=== PATIENT | male | born 1970 | race Caucasian/White ===

== ENCOUNTER → 2019-06-17 14:10 | Outpatient (CLI) | payer OTHER, SELFPAY | PROVIDERS: PCP Nurse Practitioner Family; Visit Provider Nurse Practitioner Family | DX: R07.89 Other chest pain (principal) | CPT/HCPCS: 93005 ==

== ENCOUNTER → 2019-07-28 07:47 | Outpatient (CLI) | payer OTHER, SELFPAY ==
--- NOTE | 2019-07-28 08:48 | PM.TREADMILL ---
Cardiac Stress Test Report Referral & Results Date Patient Seen: 07/28/19 Time Patient Seen: 08:30 Requesting provider: Rosanne Vazquez Indication: Chest discomfort Rest ECG: Normal sinus rhythm Procedure Note: Today following both written and verbal informed consent the patient was exercised according to a standard Nicolás protocol patient went for a total of 10 minutes achieving a maximum heart rate of 179 maximum systolic blood pressure of 244. This is approximately 12.8 METs. Exercise was terminated at this point because of fatigue. Patient was also given Cardiolite through a previously started Hep-Lock IV by the remanufacturing technician approximately 1 minute prior to the cessation of exercise. No signs or symptoms of angina. No change in rhythm. Marginal ST deviations in multiple leads that resolved rapidly with rest. Exaggerated blood pressure response to exercise. LAUREN 0% on sedentary scale. Impression: Low probability for ischemia. Will await perfusion imaging. Consider workup for labile hypertension. Please note: Actual ECG tracings can be found in the PACS system.
--- NOTE | 2019-07-29 13:28 | DI.NM.S_ITS ---
DATE OF SERVICE: 07/28/2019 PROCEDURE PERFORMED: Exercise treadmill stress and rest myocardial perfusion imaging study with gating to assess ejection fraction and regional wall motion. ORDERING PROVIDER: NIKOLAS Schwab. INDICATIONS: The patient is a 49-year-old obese male with exertional chest discomfort and dyspnea. EXERCISE TREADMILL TESTING: The patient was able to exercise for a total of 10 minutes 13 seconds on a standard Nicolás protocol suggesting fair exercise capacity with an LAUREN of +5%. He had a normal heart rate response to exercise, achieving a maximum heart rate of 179 bpm (104% of his predicted maximum). He had a hypertensive blood pressure response to exercise with a resting blood pressure of 160/98 increasing to a maximum of 244/90. He had no chest discomfort. His resting ECG is normal and there are no ischemic changes with stress. There were no obvious arrhythmias. At 8 minutes 59 seconds of exercise, at heart rate of 152 bpm, 26.2 mCi of technetium-99 Myoview was injected and the patient was imaged 15 minutes later using a gated SPECT acquisition protocol. He returned the following day and was reinjected with an additional 25.2 mCi of technetium-99 Myoview and was imaged 30 minutes later, again using a gated SPECT acquisition protocol. FINDINGS: 1. Raw Data: There is fair myocardial tracer uptake. The lung/heart ratio is normal at 0.34 with a normal TID ratio of 0.73. 2. Quantitative Gated SPECT: Post stress ejection fraction is estimated at 88% without any focal wall motion abnormality. Resting ejection fraction is estimated at 78% with a resting end-diastolic volume of 99 mL. 3. Myocardial Perfusion Imaging: Post stress supine images show a fairly normal myocardial perfusion pattern with a very subtle defect in the proximal inferior wall that resolves on prone imaging, consistent with diaphragmatic attenuation. The resting images show an identical perfusion pattern without any areas of improvement. CONCLUSIONS: 1. Normal myocardial perfusion study. 2. Mild fixed inferior defect that resolves on prone imaging consistent with diaphragmatic attenuation artifact. There is no evidence for significant myocardial ischemia or previous myocardial infarction. 3. Normal left ventricular systolic function without any focal wall motion abnormality. 4. Fair exercise capacity without angina or ECG evidence of ischemia but with a significant hypertensive blood pressure response to exercise. Ino Reinoso - KELLY/gayle/ doc#: [id number]/job#: [id number] dd: 07/29/2019 12:35:00 dt: 07/29/2019 13:18:00 DICTATING MD/COPIES TO: Aurelio France MD; Rosanne Vazquez NP COPIES MNE: REYES LAM
== END ==
PROVIDERS: PCP Nurse Practitioner Family; Visit Provider Nurse Practitioner Family
DX: R07.89 Other chest pain (principal); R06.00 Dyspnea, unspecified; E66.9 Obesity, unspecified; R03.0 Elevated blood-pressure reading, without diagnosis of hypertension
CPT/HCPCS: 78452; 93016; 93017; 93018; A9502

== ENCOUNTER → 2020-08-20 09:16 | Outpatient (CLI) | payer OTHER, SELFPAY ==
[2020-08-20 10:14] LABS: Add Manual Diff / Slide Review NO; Basophils Absolute Auto 0 /uL (0-100); Basophils Percent Auto 0.5 % (0-2); Eosinophils Absolute Auto 100 /uL (0-450); Eosinophils Percent Auto 2.3 % (2-4); Hematocrit 48.3 % (41-53); Hemoglobin 16.6 g/dL (13.5-17.5); Lymphocytes Absolute Auto 1800 /uL (1100-4500); Lymphocytes Percent Auto 27.8 % (25-40); Mean Corpuscular HGB Conc 34.3 % (30-36); Mean Corpuscular Hemoglobin 28.9 PG (26-34); Mean Corpuscular Volume 84.3 fL (80-100); Monocytes Absolute Auto 600 /uL (0-900); Monocytes Percent Auto 8.5 % (3-14); Neutrophils Absolute Auto 4000 /uL (1500-7000); Neutrophils Percent Auto 60.9 % (50-75); Platelet Count 229 X10^3/uL (150-400); Red Blood Cell Count 5.73 X10^6/uL (4.5-5.9); Red Cell Distribution Width 13.5 % (11.6-14.8); White Blood Cell Count 6.5 X10^3/uL (4.5-11.0)
[2020-08-20 10:40] LABS: Alanine Aminotransferase 36 IU/L (<50); Albumin 4.1 g/dL (3.5-5.0); Albumin Globulin Ratio 1.3 (1.0-2.8); Alkaline Phosphatase 95 U/L (38-126); Aspartate Aminotransferase 29 IU/L (17-59); BUN Creatinine Ratio 14.6 (6-22); Bilirubin Total 0.6 mg/dL (0.2-1.3); Blood Urea Nitrogen 14 mg/dL (9-20); Calcium 9.3 mg/dL (8.4-10.2); Carbon Dioxide 31 mmol/L (22-32); Chloride 105 mmol/L (98-107); Cholesterol 200 mg/dL (140-199); Estimated Glomerular Filt Rate > 60.0 mL/min (>60); Globulin 3.2 g/dL (1.7-4.1); Glucose 114 mg/dL (70-100); HDL Cholesterol 32 mg/dL (40-60); HEMOLYSIS 23 (0-50); LDL Cholesterol Calculated 149 mg/dL (<100); Potassium 4.1 mmol/L (3.4-5.1); Sodium 139 mmol/L (137-145); Total Protein 7.3 g/dL (6.3-8.2); Triglycerides 97 mg/dL (35-150)
[2020-08-20 11:08] LABS: Prostate Specific Antigen Scrn 1.13 ng/mL (0.1-4.0)
[2020-08-20 11:16] LABS: TSH w/ Reflex to FT4 1.97 uIU/mL (0.47-4.68)
== END ==
PROVIDERS: PCP Nurse Practitioner Family; Referring Provider Family Medicine; Visit Provider Family Medicine
DX: Z76.89 Persons encountering health services in other specified circumstances (principal); Z12.5 Encounter for screening for malignant neoplasm of prostate; Z13.220 Encounter for screening for lipoid disorders; Z13.29 Encounter for screening for other suspected endocrine disorder; Z13.228 Encounter for screening for other metabolic disorders
CPT/HCPCS: 36415; 80053; 80061; 84443; 85025; G0103

== ENCOUNTER → 2022-09-28 10:58 | Outpatient (CLI) | payer OTHER, SELFPAY ==
[2022-09-28 12:46] LABS: Add Manual Diff / Slide Review NO; Basophils Absolute Auto 0 /uL (0-100); Basophils Percent Auto 0.6 % (0-2); Eosinophils Absolute Auto 100 /uL (0-450); Eosinophils Percent Auto 1.5 % (2-4); Hematocrit 48.4 % (41-53); Hemoglobin 16.5 g/dL (13.5-17.5); Lymphocytes Absolute Auto 1900 /uL (1100-4500); Lymphocytes Percent Auto 28.9 % (25-40); Mean Corpuscular Hemoglobin 28.8 PG (26-34); Mean Corpuscular Volume 84.5 fL (80-100); Monocytes Absolute Auto 500 /uL (0-900); Monocytes Percent Auto 7.5 % (3-14); Neutrophils Absolute Auto 4000 /uL (1500-7000); Neutrophils Percent Auto 61.5 % (50-75); Platelet Count 238 X10^3/uL (150-400); Red Blood Cell Count 5.73 X10^6/uL (4.5-5.9); Red Cell Distribution Width 13.8 % (11.6-14.8); White Blood Cell Count 6.5 X10^3/uL (4.5-11.0)
[2022-09-28 13:03] LABS: Hemoglobin A1C% w Est Avg Glu 5.5 % (4.0-6.0)
[2022-09-28 13:43] LABS: Alanine Aminotransferase 36 IU/L (<50); Alkaline Phosphatase 102 U/L (38-126); Aspartate Aminotransferase 27 IU/L (17-59); BUN Creatinine Ratio 15.2 (6-22); Bilirubin Total 0.6 mg/dL (0.2-1.3); Blood Urea Nitrogen 15 mg/dL (9-20); Calcium 9.4 mg/dL (8.4-10.2); Carbon Dioxide 31 mmol/L (22-32); Chloride 101 mmol/L (98-107); Cholesterol 195 mg/dL (140-199); Estimated Glomerular Filt Rate > 60 mL/min (>60); Glucose 88 mg/dL (70-100); HDL Cholesterol 35 mg/dL (40-60); HEMOLYSIS < 15 (0-50); LDL Cholesterol Calculated 145 mg/dL (<100); Potassium 4.6 mmol/L (3.4-5.1); Sodium 140 mmol/L (137-145); Total Protein 7.7 g/dL (6.3-8.2); Triglycerides 73 mg/dL (35-150)
[2022-09-28 14:03] LABS: Prostate Specific Antigen 1.14 ng/mL (0.10-4.00)
[2022-09-28 16:49] LABS: Albumin 4.2 g/dL (3.5-5.0); Albumin Globulin Ratio 1.2 (1.0-2.8); Globulin 3.5 g/dL (1.7-4.1)
== END ==
PROVIDERS: PCP Family Medicine; Referring Provider Family Medicine; Visit Provider Family Medicine
DX: Z00.00 Encounter for general adult medical examination without abnormal findings (principal); Z83.3 Family history of diabetes mellitus
CPT/HCPCS: 36415; 80053; 80061; 83036; 84153; 85025

== ENCOUNTER 2023-02-08 13:50 | Day surgery (SDC) | payer OTHER, SELFPAY ==
[2023-02-08] MEDS: LACTATED RINGERS 1,000 ML 42 ML IV (14:57)
[2023-02-08 15:02] VITALS: BP 173/99; PULSE 79; RESP 18; TEMP 35.9; O2SAT 98; BMI 37.3
--- NOTE | 2023-02-08 15:50 | P.HP_ITS ---
History of Present Illness History of Present Illness Date Patient Seen: 02/08/23 Time Patient Seen: 15:50 Chief complaint: [facility] [place] Narrative: Mr. Mckinnon has never had a colonoscopy before. He presents today for his 1st screening colonoscopy. He has no family history of colon cancer and no symptoms that are concerning to him. FORMERLY [facility], [facility] Medical History Allergic rhinitis (2006) Chicken pox (~1984) Family history of type 2 diabetes mellitus Hyperlipidemia Hypertension Shoulder pain (~2016) Sinus pressure (~2015) Well adult exam Family History Father Age: 75 Hypertension Mental health problem Grandmother Cancer Heart disease Hypertension Stroke Mother Cancer Diabetes mellitus Heart disease Hypertension Mental health problem Stroke Grandfather No problems noted. Grandfather Alzheimer's disease Social History household members: spouse Smoking Status: Former smoker Tobacco: How many years used: 3 second hand exposure: No alcohol intake: current substance use type: does not use Meds Home Medications and Allergies Home Medications Medication Instructions Recorded Confirmed Type atorvastatin 10 mg tablet 10 mg PO BEDTIME #90 tabs 09/28/22 02/08/23 Rx lisinopril 10 mg tablet 10 mg PO DAILY #90 tabs 09/28/22 02/08/23 Rx Allergies Allergy/AdvReac Type Severity Reaction Status Date / Time No Known Drug Allergies Allergy Verified 02/08/23 15:00 Exam Vital Signs (past 8 hours): - 02/08/23 15:02 Temperature 96.7 F L Pulse Rate 79 Respiratory Rate 18 Blood Pressure 173/99 H Pulse Oximetry 98 Oxygen Delivery Method Room Air Oxygen Delivery Method Room Air Const General: cooperative, healthy appearing and comfortable [facility] Head: normal to inspection Eyes General: appearance normal, both eyes and all related structures Resp Effort & Inspection: normal respiratory effort and able to speak in complete sentences GI Palpation: soft and No tender Assessment & Plan Assessment and plan (1) Colon cancer screening: Status: Acute Assessment & Plan narrative: Presents today for screening colonoscopy I discussed the risks benefits and alternatives including but not limited to perforation of the colon and an incomplete exam he fully understands these risks and would like to proceed.
--- NOTE | 2023-02-08 17:11 | P.OP.COLON_ITS ---
Operative Date/Time/Diagnoses Date of procedure: 02/08/23 Time of procedure: 17:12 Pre-op diagnosis: Colon cancer screening Post-op diagnosis: same Procedure & Clinicians Study performed: Colonoscopy for screening Same procedure as scheduled: Yes Indications: Colon cancer screening Surgeon: Shelia Soto Procedure Notes Procedure in detail: Patient was taken to the endoscopy suite and placed in a left lateral decubitus position. A time-out was performed. With the help of anesthesiology provider conscious sedation was induced and maintained throughout the case. Digital rectal exam was performed and there were no masses or strictures. The colonoscope was introduced into the anal canal and advanced through to the cecum. Abdominal pressure was required. The prep was also borderline good/poor. I think with copious irrigation I was able to complete an adequate exam however I would probably recommend to the patient that they diligently hydrate and maybe extend the prep a little bit longer. There were no polyps that were seen. There were scattered diverticula within the sigmoid colon. And the camera was retroflexed and the hemorrhoidal piles appeared unremarkable with possibly grade 1 internal hemorrhoids. Findings: divertiulosis Specimen(s): none sent Complications: none Post-procedure Recommendations: Colonoscopy in 10 years Plan for aftercare: With no family history of colon cancer and no other concerning symptoms follow- up for screening can be done in 10 years
[2023-02-08 17:13] VITALS: BP 107/64; PULSE 61; RESP 16; TEMP 36.1; O2SAT 98
[2023-02-08 17:18] VITALS: BP 108/65; PULSE 57; RESP 14; O2SAT 98
[2023-02-08 17:23] VITALS: BP 117/66; PULSE 54; RESP 13; O2SAT 100
[2023-02-08 17:28] VITALS: BP 121/74; PULSE 57; RESP 14; O2SAT 100
[2023-02-08 17:34] VITALS: BP 135/80; PULSE 56; RESP 16; O2SAT 100
== END 2023-02-08 17:40 | disposition home or self-care (01) ==
PROVIDERS: PCP Family Medicine; Referring Provider Surgery; Visit Provider Surgery
PROC: 0DJD8ZZ Inspection of Lower Intestinal Tract, Via Natural or Artificial Opening Endoscopic (ICD-10-PCS; CPT 45378; principal; 2023-02-08 15:00)
DX: Z12.11 Encounter for screening for malignant neoplasm of colon (principal); K57.30 Diverticulosis of large intestine without perforation or abscess without bleeding
CPT/HCPCS: 45378; J2704

== ENCOUNTER → 2023-10-04 07:00 | Outpatient (CLI) | payer OTHER, SELFPAY ==
[2023-10-04 08:44] LABS: Alanine Aminotransferase 32 IU/L (<50); Albumin 3.8 g/dL (3.5-5.0); Albumin Globulin Ratio 1.3 (1.0-2.8); Alkaline Phosphatase 99 U/L (38-126); Aspartate Aminotransferase 25 IU/L (17-59); BUN Creatinine Ratio 15.2 (6-22); Bilirubin Total 0.6 mg/dL (0.2-1.3); Blood Urea Nitrogen 15 mg/dL (9-20); Calcium 9.6 mg/dL (8.4-10.2); Carbon Dioxide 28 mmol/L (22-32); Chloride 105 mmol/L (98-107); Cholesterol 119 mg/dL (140-199); Estimated Glomerular Filt Rate > 60 mL/min (>60); Glucose 102 mg/dL (70-100); HDL Cholesterol 26 mg/dL (40-60); HEMOLYSIS < 15 (0-50); LDL Cholesterol Calculated 79 mg/dL (<100); Potassium 4.1 mmol/L (3.4-5.1); Sodium 141 mmol/L (137-145); Total Protein 6.8 g/dL (6.3-8.2); Triglycerides 72 mg/dL (35-150)
== END ==
PROVIDERS: PCP Family Medicine; Referring Provider Family Medicine; Visit Provider Family Medicine
DX: E78.5 Hyperlipidemia, unspecified (principal)
CPT/HCPCS: 36415; 80053; 80061

== ENCOUNTER → 2025-07-06 07:01 | Outpatient (CLI) | payer OTHER, SELFPAY ==
[2025-07-06 07:50] LABS: Add Manual Diff / Slide Review NO; Hematocrit 46.6 % (41-53); Hemoglobin 15.9 g/dL (13.5-17.5); Lymphocytes Absolute Auto 2000 /uL (1100-4500); Mean Corpuscular HGB Conc 34.1 % (30-36); Mean Corpuscular Hemoglobin 28.8 PG (26-34); Mean Corpuscular Volume 84.3 fL (80-100); Platelet Count 228 X10^3/uL (150-400)
[2025-07-06 07:58] LABS: Hemoglobin A1C% w Est Avg Glu 5.6 % (4.0-6.0)
[2025-07-06 08:19] LABS: Alanine Aminotransferase 26 IU/L (<50); Albumin 4.2 g/dL (3.5-5.0); Albumin Globulin Ratio 1.4 (1.0-2.8); Alkaline Phosphatase 95 U/L (38-126); Blood Urea Nitrogen 14 mg/dL (9-20); Calcium 9.5 mg/dL (8.4-10.2); Carbon Dioxide 28 mmol/L (22-32); Chloride 104 mmol/L (98-107); Cholesterol 140 mg/dL (140-199); Estimated Glomerular Filt Rate > 60 mL/min (>60); Globulin 3.0 g/dL (1.7-4.1); Glucose 115 mg/dL (70-99); HDL Cholesterol 35 mg/dL (40-60); HEMOLYSIS < 15 (0-50); Potassium 5.0 mmol/L (3.4-5.1); Sodium 139 mmol/L (137-145); Total Protein 7.2 g/dL (6.3-8.2); Triglycerides 83 mg/dL (35-150)
[2025-07-06 08:46] LABS: TSH w/ Reflex to FT4 1.70 uIU/mL (0.47-4.68)
== END ==
PROVIDERS: PCP Family Medicine; Referring Provider Family Medicine; Visit Provider Family Medicine
DX: I10 Essential (primary) hypertension (principal); E78.00 Pure hypercholesterolemia, unspecified; R73.03 Prediabetes; Z00.00 Encounter for general adult medical examination without abnormal findings; E87.5 Hyperkalemia
CPT/HCPCS: 36415; 80053; 80061; 83036; 84443; 85025